=== PATIENT | female | born 1995 | race Caucasian/White ===

== ENCOUNTER 2019-03-16 08:47 | Emergency (ER) | payer MEDICAID ==
[~2019-03-16] VITALS: Ht 160 cm; Wt 66.0 kg
[2019-03-16 09:59] LABS: BASOPHILS % 1.2 % (0.0-2.0); EOSINOPHILS % 2.1 % (0.0-5.0); HEMATOCRIT. 40.5 % (36.0-48.0); HEMOGLOBIN. 13.4 g/dL (12.0-16.0); LYMPHOCYTES % 38.7 % (20.0-50.0); MEAN CORPUSCULAR VOLUME 84.4 fL (81.0-99.0); MEAN PLATELET VOLUME 7.8 fl (7.4-10.4); MONOCYTES % 5.3 % (2.0-8.0); NEUTROPHILS % 52.7 % (40.0-76.0); PLATELET 246 x1000/uL (130-400); RED BLOOD CELL COUNT 4.79 mill/uL (4.2-5.4); RED CELL DISTRIBUTION WIDTH 16.3 % (11.6-14.6)
[2019-03-16 10:07] LABS: CHLORIDE 107 mEq/L (98-107)
[2019-03-16 10:18] LABS: B-HCG QUANTITATIVE 3 mIU/mL (<3)
[2019-03-16 10:25] LABS: CLARITY URINE TURBID (CLEAR); COLOR URINE BLOODY (YELLOW); KETONES URINE NEGATIVE (NEGATIVE); LEUKOCYTE ESTERASE URINE 2+ (NEGATIVE); NITRITE URINE NEGATIVE (NEGATIVE); OCCULT BLOOD URINE 3+ (NEGATIVE); PROTEIN URINE 2+ (NEGATIVE); UROBILINOGEN URINE 0.2 E.U./dL (0.2-1.0)
[2019-03-16] MEDS ORDERED: MISOPROSTOL 200MCG TABLET PO NR (13:45)
[2019-03-16 14:27] VITALS: BP 108/73
== END 2019-03-16 14:29 | disposition home or self-care (01) ==
LOC: ER 08:47
DX: O72.1 Other immediate postpartum hemorrhage (principal); R10.2 Pelvic and perineal pain
CPT/HCPCS: 36415; 76830; 76856; 81025; 84702; 86850; 86900; 99284